=== PATIENT | female | born 1980 | race African-American/Black ===

== ENCOUNTER 2016-11-05 13:12 | Emergency (ER) | payer OTHER ==
[2016-11-05 13:20] VITALS: BMI 25.2
--- NOTE | 2016-11-05 13:43 | PDOC ---
History of Present Illness - History of Present Illness Initial Comments: 11/05/16 13:44 The patient is a 36 year old female, with a significant past medical history of asthma, hypertension, multiple sclerosis (2002) and bipolar depression (on medications), who presents to the emergency department with headaches and bilateral hand cramping/tingling/numbness since 2002 requesting for referral for MS neurology specialist. She states her headaches are constant and diffuse daily. She states her hands and feet cramp and become numb every day, making daily living difficult. She reports she stopped working in 2009 because of her diffuse muscle pain. She states she saw a physician at [facility] who attributed her hand and feet cramping and numbness to bipolar depression. The patient reports [facility] and told her bipolar depression doesn't make your hands cramp and referred her to a neurologist. She reports seeing the neurologist today who stated he does not see MS patients. She denies chest pain, shortness of breath, and dizziness. She denies fever, chills, nausea, vomit, diarrhea and constipation. She denies dysuria, frequency , urgency and hematuria. Allergies: NKDA PCP - unknown name, [facility] <Cyndi Bryan - Last Filed: 11/05/16 13:44> - General History Source: Patient Exam Limitations: No Limitations <Breonna Reina - Last Filed: 11/06/16 19:42> - General Chief Complaint: CVA/TIA Stated Complaint: ALTERED MENTAL STATUS Time Seen by Provider: 11/05/16 13:23 Past History <Cyndi Bryan - Last Filed: 11/05/16 13:44> - Past Medical History Asthma: Yes Cardiac Disorders: Yes ("NEED STENT") HTN: Yes Psychiatric Problems: Yes (BIPOLAR, ANXIETY, DEPRESSION.) Thyroid Disease: Yes (HYPO.) Other medical history: MS. - Psycho/Social/Smoking Cessation Hx Anxiety: Yes Suicidal Ideation: Yes Smoking History: Never smoked Hx Alcohol Use: No Drug/Substance Use Hx: No Substance Use Type: None <Breonna Reina - Last Filed: 11/06/16 19:42> - Past Medical History Allergies/Adverse Reactions: Allergies Allergy/AdvReac Type Severity Reaction Status Date / Time No Known Drug Allergies Allergy Verified 11/05/16 13:15 CHOCOLATE AdvReac Uncoded 11/05/16 13:15 DAIRY AdvReac Uncoded 11/05/16 13:15 ONIONS AdvReac Uncoded 11/05/16 13:15 Home Medications: Ambulatory Orders Acetaminophen/Caffeine/Butalb [Fioricet -] 1 tab PO TID #21 tablet MDD 3 Albuterol Sulfate Inhaler - [Ventolin Hfa Inhaler -] 1 - 2 inh PO QID PRN Amlodipine Besylate [Norvasc -] 2.5 mg PO DAILY 11/05/16 Buspirone HCl [Buspar -] 10 mg PO BID 11/05/16 Duloxetine HCl 30 mg PO DAILY 11/05/16 [place] Carbonate [Eskalith -] 600 mg PO HS 11/05/16 [place] Carbonate [Lithobid] 300 mg PO AM 11/05/16 Mometasone Furoate [Asmanex 220Mcg -] 1 puff IH HS 11/05/16 Montelukast Na [Singulair -] 10 mg PO HS 11/05/16 Nortriptyline HCl [Pamelor -] 25 mg PO DAILY 11/05/16 Trazodone HCl [Desyrel -] 50 mg PO HS 11/05/16 Review of Systems - Review of Systems Able to Perform ROS?: Yes Comments:: 11/05/16 13:44 CONSTITUTIONAL: Absent: fever, no chills, no fatigue EYES: Absent: visual changes ENT: Absent: ear pain, no sore throat CARDIOVASCULAR: Absent: chest pain, no palpitations RESPIRATORY: Absent: cough, no SOB GASTROINTESTINAL: Absent: abdominal pain, no nausea, no vomiting, no constipation, no diarrhea GENITOURINARY: Absent: dysuria, no frequency, no hematuria MUSCULOSKELETAL: (+) cramping, numbness and tingling to bilateral hands and feet. Absent: back pain, no arthralgia, no myalgia SKIN: Absent: rash NEURO: (+) headache <Cyndi Bryan - Last Filed: 11/05/16 13:44> *Physical Exam - Vital Signs Last Vital Signs Temp Pulse Resp BP Pulse Ox 98.3 F 88 18 147/83 100 11/05/16 13:15 11/05/16 13:15 11/05/16 13:15 07/13/17 13:15 11/05/16 13:15 - Physical Exam Comments: 11/05/16 13:45 GENERAL: The patient is in no acute distress. HEAD: Normal with no signs of trauma. EYES: PERRLA, EOMI, sclera anicteric, conjunctiva clear. ENT: Ears normal, nares patent, oropharynx clear without exudates. Moist mucous membranes. NECK: Normal range of motion, supple without lymphadenopathy, JVD, or masses. LUNGS: Breath sounds equal, clear to auscultation bilaterally. No wheezes, and no crackles. HEART:Regular rate and rhythm, normal S1 and S2 without murmur, rub or gallop. ABDOMEN: Soft, nontender, normoactive bowel sounds. No guarding, no rebound. No masses palpable. EXTREMITIES: Normal range of motion, no edema. No clubbing or cyanosis. No erythema, or tenderness. NEUROLOGICAL: Cranial nerves II through XII grossly intact. Normal speech. No focal neurological deficits. MUSCULOSKELETAL: Back non-tender to palpation, no CVA tenderness SKIN: Warm, Dry, normal turgor, no rashes or lesions noted. <Cyndi Bryan - Last Filed: 11/05/16 13:44> - Vital Signs Last Vital Signs Temp Pulse Resp BP Pulse Ox 98.3 F 88 18 147/83 100 11/05/16 13:15 11/05/16 13:15 11/05/16 13:15 11/05/16 13:15 11/05/16 13:15 <Breonna Reina - Last Filed: 11/06/16 19:42> ED Treatment Course - LABORATORY CBC & Chemistry Diagram: 11/05/16 14:26 11/05/16 14:26 <Breonna Reina - Last Filed: 11/06/16 19:42> Medical Decision Making - Medical Decision Making A portion of this note was documented by scribe services under my direction. I have reviewed the details of the note, within reason, and agree with the documentation with the following case summary and management plan written by me. Nursing documentation reviewed and incorporated into medical decision making 11/05/16 13:42 This is a 36 yo F who presents to the ER with a complaint of headache and concerns about MS. Pt state she was diagnosed with MS in 2002 She ultimately went on disability in 2009 due to bilateral hand and feet cramping She has persitently had these symptoms She was seen at [facility] and was told that she actually didn't have MS but rather bipolar depression She also has a history of chronic right sided headaches She was seen by her prior primary care physician who confirmed this She was never seen by Neurology for headaches She was started on some medication (she can not remember the name) which did not help She recently switched from [address] [place] [address] to [facility] She was seen by her PMD there who asked her to follow up with Neurology She was seen today by a neurologist who reportedly told her that (s)he is not a MS specialist Pt presents to the ER for work up of MS which she was told that she had in 2002 and then subsequently told she did not have On examination Pt has flattened affect Speaking in clear and complete sentences RRR CTA No abd tenderness Generalized weakness noted through out (holds hands up against gravity 5/5 bilaterally, hand grip3/5; holds legs up against gravity , does not fall back to bed) 11/05/16 14:24 11/05/16 16:18 Laboratory Tests 11/05/16 14:26 WBC 4.8 Hgb 11.3 Hct 34.4 Plt Count 333 Neutrophils % 57.7 Lymphocytes % 29.7 11/05/16 16:18 Laboratory Tests 11/05/16 11/05/16 14:26 14:26 Sodium 140 Potassium 3.8 Chloride 108 H Carbon Dioxide 25 BUN 12 Creatinine 0.8 D Random Glucose 122 H D Serum , Qual Negative Pt given toradol and Reglan Pt has been sleeping since getting medications Case reviewed with Dr. Dominguez He is happy to see this patient in the office He Can even see her on Wednesday I have relayed this to the patient Will give Fiorecet for headaches Upon re assessment, pt feels better Return to the ER for any other concerns or complaints <Breonna Reina - Last Filed: 11/06/16 19:42> *DC/Admit/Observation/Transfer - Attestations Scribe Attestion: 11/05/16 13:46 Documentation prepared by Cyndi Bryan, acting as medical records clerk for Breonna Reina MD <Cyndi Bryan - Last Filed: 11/05/16 13:44> - Discharge Dispostion Admit: No <Breonna Reina - Last Filed: 11/06/16 19:42> Diagnosis at time of Disposition: Chronic pain Qualifiers: Chronic pain type: chronic pain syndrome Qualified Code(s): G89.4 - Chronic pain syndrome Headache Qualifiers: Headache type: unspecified Headache chronicity pattern: chronic headache Intractability: not intractable Qualified Code(s): R51 - Headache - Discharge Dispostion Disposition: HOME Condition at time of disposition: Stable - Prescriptions Prescriptions: Acetaminophen/Caffeine/Butalb [Fioricet -] 1 tab PO TID #21 tablet MDD 3 - Referrals Referrals: Adán Dominguez MD [Staff Physician] - - Patient Instructions Printed Discharge Instructions: DI for Migraine, DI for Headache Additional Instructions: Thank you for coming in to the ER Dr. Dominguez - the neurologic specialist - is happy to see you in the office Please call the office for a follow up appointment ASH IF you have any records, please bring them with you, he will find that helpful Please take medications as prescribed You should also be sure to take all your home medications as previously prescribed You can return to the ER for any new concerns or complaints
[2016-11-05] MEDS ORDERED: KETOROLAC TROMETHAMINE 30 MG/1 ML VIAL IVPUSH ONE (13:47)
[2016-11-05] MEDS ORDERED: METOCLOPRAMIDE HCL INJECTION 10 MG/2 ML VIAL IVPB ONE (13:47)
[2016-11-05] MEDS ORDERED: KETOROLAC TROMETHAMINE 30 MG/1 ML VIAL ONE (13:52)
[2016-11-05] MEDS ORDERED: METOCLOPRAMIDE HCL INJECTION 10 MG/2 ML VIAL ONE (13:52)
[2016-11-05 14:49] LABS: BASOPHIL 0.5 % (0-2.0); EOSINOPHIL 1.7 % (0-4.5); MCH 28.3 pg (25.7-33.7); MCHC 32.8 g/dl (32.0-36.0); MEAN CELL VOLUME 86.3 fl (80-96); MEAN PLT VOLUME 8.1 fl (7.5-11.1); NEUTROPHILS 57.7 % (42.8-82.8); PLATELET COUNT 333 K/MM3 (134-434); RDW 14.5 % (11.6-15.6); WHITE BLOOD COUNT 4.8 K/mm3 (4.0-10.0)
[2016-11-05 14:59] LABS: ALBUMIN 3.2 g/dl (3.4-5.0); ANION GAP 7 (8-16); BILIRUBIN,TOTAL 0.2 mg/dL (0.2-1.0); CALCIUM 8.8 mg/dL (8.5-10.1); CO2 25 mmol/L (21-32); CREATININE 0.8 mg/dL (0.55-1.02); GLUCOSE,RANDOM 122 mg/dL (74-106); SGOT/AST 16 U/L (15-37); SGPT/ALT 11 U/L (12-78); TOT PROT 6.7 g/dl (6.4-8.2)
[2016-11-05 15:00] LABS: ALK PHOS 53 U/L (45-117)
[2016-11-05 16:53] VITALS: BP 109/82; PULSE 77; TEMP 98.6
== END 2016-11-05 16:50 | disposition home or self-care (01) ==
LOC: JER 13:12
PROC: 3E0333Z Introduction of Anti-inflammatory into Peripheral Vein, Percutaneous Approach (ICD-10-PCS; principal; 2016-11-05)
PROC: 3E033GC Introduction of Other Therapeutic Substance into Peripheral Vein, Percutaneous Approach (ICD-10-PCS; 2016-11-05)
DX: R51 Headache (principal); G89.4 Chronic pain syndrome; J45.909 Unspecified asthma, uncomplicated; I10 Essential (primary) hypertension; F31.89 Other bipolar disorder; G35 Multiple sclerosis
CPT/HCPCS: 36415; 80053; 84703; 85025; 99283-25

== ENCOUNTER 2018-09-01 10:43 | Emergency (ER) | payer OTHER ==
[2018-09-01 10:49] VITALS: BP 118/79; PULSE 100; TEMP 97.7; BMI 196.5
[2018-09-01] MEDS ORDERED: ALBUTEROL SO4 0.083% IH SOL 2.5 MG/3 ML VIAL.NEB. NEB ONE ×2 (10:49→11:11)
--- NOTE | 2018-09-01 12:42 | PDOC ---
History of Present Illness - General Chief Complaint: Asthma Stated Complaint: ASTHMA, LOWER BACK PAIN Time Seen by Provider: 09/01/18 12:35 History Source: Patient Exam Limitations: No Limitations - History of Present Illness Initial Comments: 09/01/18 12:42 Patient is here with multiple complaints including asthma exacerbation and low back pain. States spent the night at friend's house last night where she didn't have her medications and had an a mild asthma attack. Coughing initiated worsening of her low back pain. States her back pain has been bothering her for the past couple weeks, generally is resolved with cyclobenzaprine but has progressively gotten worse. Timing/Duration: reports: getting worse Severity: reports: mild, moderate Past History - Travel Traveled outside of the country in the last 30 days: No Close contact w/someone who was outside of country & ill: No - Past Medical History Allergies/Adverse Reactions: Allergies Allergy/AdvReac Type Severity Reaction Status Date / Time No Known Drug Allergies Allergy Verified 09/01/18 10:51 CHOCOLATE AdvReac Uncoded 09/01/18 10:51 DAIRY AdvReac Uncoded 09/01/18 10:51 ONIONS AdvReac Uncoded 09/01/18 10:51 Home Medications: Ambulatory Orders Acetaminophen/Caffeine/Butalb [Fioricet -] 1 tab PO TID #21 tablet MDD 3 Albuterol Sulfate Inhaler - [Ventolin Hfa Inhaler -] 1 - 2 inh PO QID PRN Amlodipine Besylate [Norvasc -] 2.5 mg PO DAILY 11/05/16 Buspirone HCl [Buspar -] 10 mg PO BID 11/05/16 Duloxetine HCl 30 mg PO DAILY 11/05/16 [place] Carbonate [Eskalith -] 600 mg PO HS 11/05/16 [place] Carbonate [Lithobid] 300 mg PO AM 11/05/16 Mometasone Furoate [Asmanex 220Mcg -] 1 puff IH HS 11/05/16 Montelukast Na [Singulair -] 10 mg PO HS 11/05/16 Nortriptyline HCl [Pamelor -] 25 mg PO DAILY 11/05/16 traZODone HCL [Desyrel -] 50 mg PO HS 11/05/16 Albuterol Sulfate [Proventil HFA Inhaler -] 1 - 2 inh PO QID #1 inhaler Naproxen [Naprosyn -] 500 mg PO BID #30 tablet 09/01/18 Anemia: Yes Asthma: Yes Cardiac Disorders: Yes ("NEED STENT") COPD: No Diabetes: Yes ("Pre-Diabetes") HTN: Yes Psychiatric Problems: Yes (BIPOLAR, ANXIETY, DEPRESSION.) Thyroid Disease: Yes (HYPO.) - Suicide/Smoking/Psychosocial Hx Smoking History: Never smoked Hx Alcohol Use: No Drug/Substance Use Hx: No Substance Use Type: None Review of Systems - Review of Systems Able to Perform ROS?: Yes Is the patient limited Faroese proficient: Yes Constitutional: Yes: Symptoms Reported, See HPI, Malaise HEENTM: Yes: See HPI. No: Symptoms Reported Respiratory: Yes: Symptoms reported (+ exacerbation as did not have Albuterol pump.), See HPI, Cough, Wheezing Integumentary: Yes: Symptoms Reported All Other Systems: Reviewed and Negative *Physical Exam - Vital Signs Last Vital Signs Temp Pulse Resp BP Pulse Ox 97.7 F 100 H 26 H 118/79 99 09/01/18 10:46 09/01/18 10:46 09/01/18 10:46 09/01/18 10:46 09/01/18 10:46 - Physical Exam General Appearance: Yes: Nourished, Appropriately Dressed, Apparent Distress HEENT: positive: JOSUE, Normal ENT Inspection, TMs Normal, Pharynx Normal Neck: positive: Supple. negative: Lymphadenopathy (R), Lymphadenopathy (L) Respiratory/Chest: positive: Lungs Clear, Normal Breath Sounds. negative: Chest Tender Gastrointestinal/Abdominal: positive: Normal Bowel Sounds, Soft. negative: Tender Musculoskeletal: positive: Normal Inspection Extremity: positive: Normal Inspection. 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 Requested Percocet tablets but patient is on pain management program and discussed and able/and willing to prescribe narcotics as patient also takes multiple psychiatric medications. Given injection of Toradol and recommended follow-up with pain management *DC/Admit/Observation/Transfer Diagnosis at time of Disposition: Chronic pain Qualifiers: Chronic pain type: chronic pain syndrome Qualified Code(s): G89.4 - Chronic pain syndrome Asthma Qualifiers: Asthma severity: mild Asthma persistence: intermittent Asthma complication type : with acute exacerbation Qualified Code(s): J45.21 - Mild intermittent asthma with (acute) exacerbation - Discharge Dispostion Disposition: HOME Condition at time of disposition: Stable Decision to Admit order: No - Prescriptions Prescriptions: Albuterol Sulfate [Proventil HFA Inhaler -] 1 - 2 inh PO QID #1 inhaler Naproxen [Naprosyn -] 500 mg PO BID #30 tablet - Referrals - Patient Instructions Printed Discharge Instructions: Asthma -- Adult Additional Instructions: Rest, no heavy lifting or exercise until pain is resolved Hot soaks to neck and low back as often as possible/hot showers or Jacuzzis No massage or therapy until spasm is gone Continue Naprosyn 500 mg tablet, 1 tablet every 8 hours for the next 3 days then as needed for pain and swelling Cyclobenzaprine 1-10mg every 8 hours as needed for spasm If not significant improvement within 24 hours with medication and rest regime, followup with private physician for change in medications and /or therapy. - Post Discharge Activity Forms/Work/School Notes: Back to Work
[2018-09-01] MEDS ORDERED: KETOROLAC TROMETHAMINE 60 MG/2 ML VIAL IM ONE (12:56)
[2018-09-01] MEDS ORDERED: KETOROLAC TROMETHAMINE 60 MG/2 ML VIAL ONE (13:08)
[2018-09-01 13:13] LABS: EPI CELLS 9.4 /HPF (0-5/HPF); PH,URINE 5.5 (5.0-8.0); URINE APPEARANCE CLOUDY; URINE BACTERIA 6342.7 /hpf (NEGATIVE); URINE BILIRUBIN NEGATIVE (NEGATIVE); URINE CASTS 64 /lpf (0-8); URINE COLOR DK YELLOW; URINE GLUCOSE (UA) NEGATIVE (NEGATIVE); URINE KETONE TRACE (NEGATIVE); URINE LEUK ESTERASE 1+ (NEGATIVE); URINE NITRITE POSITIVE (NEGATIVE); URINE PROTEIN TRACE (NEGATIVE); URINE RBC 3 /hpf (0-4); URINE WBC 49 /hpf (0-5)
[2018-09-01 13:35] LABS: HCG,QUALITATIVE URINE NEGATIVE
== END 2018-09-01 13:15 | disposition home or self-care (01) ==
LOC: JERFT 10:43
PROC: 3E0F7GC Introduction of Other Therapeutic Substance into Respiratory Tract, Via Natural or Artificial Opening (ICD-10-PCS; principal; 2018-09-01)
PROC: 3E0233Z Introduction of Anti-inflammatory into Muscle, Percutaneous Approach (ICD-10-PCS; 2018-09-01)
DX: J45.21 Mild intermittent asthma with (acute) exacerbation (principal); M54.5 Low back pain; G89.29 Other chronic pain; I10 Essential (primary) hypertension; D64.9 Anemia, unspecified; E03.9 Hypothyroidism, unspecified; R73.03 Prediabetes; F31.9 Bipolar disorder, unspecified; F41.9 Anxiety disorder, unspecified
CPT/HCPCS: 81003; 84703; 99281-25

== ENCOUNTER 2019-02-17 13:22 | Emergency (ER) | payer OTHER ==
[2019-02-17 13:49] VITALS: BP 146/91; PULSE 80; TEMP 98.3
--- NOTE | 2019-02-17 13:50 | PDOC ---
Rapid Medical Evaluation Time Seen by Provider: 02/17/19 13:44 Medical Evaluation: Allergies Allergy/AdvReac Type Severity Reaction Status Date / Time No Known Drug Allergies Allergy Verified 09/01/18 10:51 CHOCOLATE AdvReac Uncoded 09/01/18 10:51 DAIRY AdvReac Uncoded 09/01/18 10:51 ONIONS AdvReac Uncoded 09/01/18 10:51 02/17/19 13:44 I have performed a brief in-person evaluation of this patient. The patient presents with a chief complaint of: Itchy rash to the torso, breasts for 2 weeks, (+) discharge from breast rash for 2 weeks. (+)tactile fever. The patient will proceed to the ED for further evaluation. Discharge Disposition - Diagnosis Rash - Referrals - Patient Instructions - Post Discharge Activity
[2019-02-17] MEDS ORDERED: NAPROXEN 500 MG TABLET (FP) PO ONE (14:46)
--- NOTE | 2019-02-17 14:53 | PDOC ---
History of Present Illness - General Chief Complaint: Rash Stated Complaint: REF BY DOCTOR, SKIN INFECTION Time Seen by Provider: 02/17/19 13:44 History Source: Patient Exam Limitations: No Limitations - History of Present Illness Initial Comments: 02/17/19 14:58 HISTORY OF PRESENT ILLNESS: This is a 38-year-old female past medical history of MS, hypertension who presents emergency department for evaluation of rash to trunk which is scattered over back and breasts. Patient reports clear discharge present from the rash. She reports the rashes and itching burning sensation worse over her upper back and breasts. She reports she feels warm but has not had any fevers. No recent travel or sick contacts. PAST MEDICAL HISTORY: See HPI SURGICAL HISTORY: Denies ALLERGIES: No known drug allergies REVIEW OF SYSTEMS General/Constitutional: Denies fever or chills. Denies weakness, weight change. HEENT: Denies change in vision. Denies ear pain or discharge. Denies sore throat. Cardiovascular: Denies chest pain or shortness of breath. Respiratory: Denies cough, wheezing, or hemoptysis. Gastrointestinal: Denies nausea, vomiting, diarrhea or constipation. Denies rectal bleeding. Genitourinary: Denies dysuria, frequency, or change in urination. Musculoskeletal: Denies joint or muscle swelling or pain. Denies neck or back pain. Skin and breasts: See HPI Neurologic: Denies headache, vertigo, loss of consciousness, or loss of sensation. Psychiatric: Denies depression or anxiety. Endocrine: Denies increased thirst. Denies abnormal weight change. Hematologic/Lymphatic: Denies anemia, easy bleeding, or history of blood clots. Allergic/Immunologic: Denies hives or skin allergy. Denies latex allergy. PHYSICAL EXAM General Appearance: Well-appearing, appropriately dressed. No apparent distress , no intoxication. Respiratory/Chest: Lungs CTAB. No shortness of breath, chest tenderness, respiratory distress, accessory muscle use. No crackles, rales, rhonchi, stridor , wheezing, dullness Cardiovascular: RRR. S1, S2. No JVD, murmur, bradycardia, tachycardia. Vascular Pulses: Dorsalis-Pedis (R): 2+, Dorsalis-Pedis (L): 2+ Gastrointestinal/Abdominal: Normal bowel sounds. Abdomen soft, non-distended. No tenderness or rebound tenderness. No organomegaly, pulsatile mass, guarding, hernia, hepatomegaly, splenomegaly. Lymphatic: No adenopathy, tenderness. Integumentary:, Burning [place] vesicular zosteriform rash present to upper back wrapping around to her abdomen and lower breast bilaterally. No drainage present at this time. Neurologic: weaving loom operator II-XII intact. Fully oriented, alert. Appropriate mood/affect. Motor strength 5/5. No appreciable EOM palsy, facial droop or sensory deficit. 02/17/19 14:59 Past History - Past Medical History Allergies/Adverse Reactions: Allergies Allergy/AdvReac Type Severity Reaction Status Date / Time No Known Drug Allergies Allergy Verified 09/01/18 10:51 CHOCOLATE AdvReac Uncoded 09/01/18 10:51 DAIRY AdvReac Uncoded 09/01/18 10:51 ONIONS AdvReac Uncoded 09/01/18 10:51 Home Medications: Ambulatory Orders Acetaminophen/Caffeine/Butalb [Fioricet -] 1 tab PO TID #21 tablet MDD 3 Albuterol Sulfate Inhaler - [Ventolin Hfa Inhaler -] 1 - 2 inh PO QID PRN Amlodipine Besylate [Norvasc -] 2.5 mg PO DAILY 11/05/16 Buspirone HCl [Buspar -] 10 mg PO BID 11/05/16 Duloxetine HCl 30 mg PO DAILY 11/05/16 [place] Carbonate [Eskalith -] 600 mg PO HS 11/05/16 [place] Carbonate [Lithobid] 300 mg PO AM 11/05/16 Mometasone Furoate [Asmanex 220Mcg -] 1 puff IH HS 11/05/16 Montelukast Na [Singulair -] 10 mg PO HS 11/05/16 Nortriptyline HCl [Pamelor -] 25 mg PO DAILY 11/05/16 traZODone HCL [Desyrel -] 50 mg PO HS 11/05/16 Albuterol Sulfate [Proventil HFA Inhaler -] 1 - 2 inh PO QID #1 inhaler Naproxen [Naprosyn -] 500 mg PO BID #30 tablet 09/01/18 Tramadol HCl 50 mg PO BID PRN #10 tablet MDD 2 02/17/19 Valacyclovir HCl [Valtrex -] 1,000 mg PO TID #21 tablet 02/17/19 Anemia: Yes Asthma: Yes Cardiac Disorders: Yes ("NEED STENT") COPD: No Diabetes: Yes ("Pre-Diabetes") HTN: Yes Psychiatric Problems: Yes (BIPOLAR, ANXIETY, DEPRESSION.) Thyroid Disease: Yes (HYPO.) - Psycho Social/Smoking Cessation Hx Smoking History: Never smoked Hx Alcohol Use: No Drug/Substance Use Hx: No Substance Use Type: None *Physical Exam - Vital Signs Last Vital Signs Temp Pulse Resp BP Pulse Ox 98.3 F 80 18 146/91 100 02/17/19 13:45 02/17/19 13:45 02/17/19 13:45 02/17/19 13:45 02/17/19 13:45 Medical Decision Making - Medical Decision Making 02/17/19 15:02 A/P: 38-year-old woman with rash extending from her upper back circumferentially to her upper abdomen and bilateral lower breasts Appearance is consistent with zosteriform rash. Patient is demanding narcotic pain medication for relief of burning sensation. 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 Patient was offered Toradol but reported she did not want injectable medication and order for Naprosyn was placed. Patient states she does not want the Naprosyn and is not requesting the Toradol. Toradol 60 mg IM now Culture from rash Discharged home with prescription for tramadol and valacyclovir with recommendations to follow-up with rattlesnake farmer. For number for Dr. Avila of dermatology has been provided for the patient to follow-up. Discharge - Discharge Information Problems reviewed: Yes Clinical Impression/Diagnosis: Shingles rash Qualifiers: Herpes zoster complications: without complications Qualified Code(s): B02.9 - Zoster without complications Condition: Fair Disposition: HOME - Admission No - Additional Discharge Information Prescriptions: Tramadol HCl 50 mg PO BID PRN #10 tablet MDD 2 PRN Reason: Severe Pain Valacyclovir HCl [Valtrex -] 1,000 mg PO TID #21 tablet - Follow up/Referral Referrals: Jonn Skelton MD [Primary Care Provider] - Mecca Avila MD [Staff Physician] - - Patient Discharge Instructions Additional Instructions: Take valacyclovir 1000 mg 3 times a day for the next 7 days. Take Tylenol or Naprosyn as needed for pain. Follow cutter and paster press clippings's instructions for appropriate dosage. Take tramadol 50 mg twice a day as needed for severe pain not relieved by Tylenol or Naprosyn. You been given the name of the rattlesnake farmer. Follow-up for continued evaluation. Your emergency department visit is not complete until you follow-up with your primary doctor. Return to the emergency department for any new or worsening symptoms. Thank you very much for choosing us to provide your emergent health care needs. - Post Discharge Activity
[2019-02-17] MEDS ORDERED: KETOROLAC TROMETHAMINE 60 MG/2 ML VIAL IM ONE (14:59)
[2019-02-17] MEDS ORDERED: KETOROLAC TROMETHAMINE 60 MG/2 ML VIAL ONE (14:59)
== END 2019-02-17 15:36 | disposition home or self-care (01) ==
LOC: JERFT 13:22
PROC: 3E0233Z Introduction of Anti-inflammatory into Muscle, Percutaneous Approach (ICD-10-PCS; principal; 2019-02-17)
DX: B02.9 Zoster without complications (principal); I25.10 Atherosclerotic heart disease of native coronary artery without angina pectoris; I10 Essential (primary) hypertension; D64.9 Anemia, unspecified; J45.909 Unspecified asthma, uncomplicated; E03.9 Hypothyroidism, unspecified; F31.9 Bipolar disorder, unspecified; F41.9 Anxiety disorder, unspecified; G35 Multiple sclerosis; R73.03 Prediabetes; Z91.018 Allergy to other foods; Z91.011 Allergy to milk products
CPT/HCPCS: 87070; 87186; 87205; 96372; 99281-25

== ENCOUNTER 2019-02-21 18:41 | Emergency (ER) | payer OTHER ==
--- NOTE | 2019-02-21 18:47 | PDOC ---
Rapid Medical Evaluation Time Seen by Provider: 02/21/19 18:43 Medical Evaluation: Allergies Allergy/AdvReac Type Severity Reaction Status Date / Time No Known Drug Allergies Allergy Verified 09/01/18 10:51 CHOCOLATE AdvReac Uncoded 09/01/18 10:51 DAIRY AdvReac Uncoded 09/01/18 10:51 ONIONS AdvReac Uncoded 09/01/18 10:51 02/21/19 18:43 I have performed a brief in-person evaluation of this patient. The patient presents with a chief complaint of: generalized pruritic rash x 1 week. No obvious inciting factors. On valtrex w/ no relief. Received call back today That wound cx from R breast grew back staph (sen on records). Told to return for re-eval Pertinent physical exam findings:stable, defer rest of exam to ED I have ordered the following:nothing The patient will proceed to the ED for further evaluation. Discharge Disposition - Diagnosis Rash and nonspecific skin eruption - Referrals - Patient Instructions - Post Discharge Activity
[2019-02-21 18:52] VITALS: BP 143/94; PULSE 100; TEMP 98.4; BMI 25.5
[2019-02-21] MEDS ORDERED: DEXAMETHASONE SOD PHOSPHATE 10 MG/1 ML VIAL IM ONE (19:10)
[2019-02-21] MEDS ORDERED: DEXAMETHASONE SOD PHOSPHATE 10 MG/1 ML VIAL ONE (19:12)
--- NOTE | 2019-02-21 19:14 | PDOC ---
History of Present Illness - General Chief Complaint: Rash Stated Complaint: RASH Time Seen by Provider: 02/21/19 18:43 - History of Present Illness Initial Comments: 02/21/19 19:09 CHIEF COMPLAINT: rash HISTORY OF PRESENT ILLNESS: 38 yo F presents to [facility] with rash to entire body x 1 month. Patient reports she was given valtrex without relief and the itching has persisted. She denies any new foods or medications. No recent travel or sick contacts. PAST MEDICAL HISTORY: Denies past medical history FAMILY HISTORY: Denies SOCIAL HISTORY:Denies tobacco, alcohol, illicit drug use. SURGICAL HISTORY: Denies ALLERGIES: chocolate, dairy, onions REVIEW OF SYSTEMS General/Constitutional: Denies fever or chills. Denies weakness, weight change. HEENT: Denies change in vision. Denies ear pain or discharge. Denies sore throat. Cardiovascular: Denies chest pain or shortness of breath. Respiratory: Denies cough, wheezing, or hemoptysis. Gastrointestinal: Denies nausea, vomiting, diarrhea or constipation. Denies rectal bleeding. Genitourinary: Denies dysuria, frequency, or change in urination. Musculoskeletal: Denies joint or muscle swelling or pain. Denies neck or back pain. Skin: rash x 1 month Neurologic: Denies headache, vertigo, loss of consciousness, or loss of sensation. Psychiatric: Denies depression or anxiety. PHYSICAL EXAM General Appearance: Well-appearing, appropriately dressed. No apparent distress , no intoxication. HEENT: EOMI, PERRLA, normal ENT inspection, normal voice, TMs normal, pharynx normal. No conjunctival pallor. No photophobia, scleral icterus. Neck: Supple. Trachea midline. No tenderness, rigidity, carotid bruit, stridor , lymphadenopathy, or thyromegaly. Respiratory/Chest: Lungs CTAB. No shortness of breath, chest tenderness, respiratory distress, accessory muscle use. No crackles, rales, rhonchi, stridor , wheezing, dullness Cardiovascular: RRR. S1, S2. No JVD, murmur, bradycardia, tachycardia. Vascular Pulses: Dorsalis-Pedis (R): 2+, Dorsalis-Pedis (L): 2+ Gastrointestinal/Abdominal: Normal bowel sounds. Abdomen soft, non-distended. No tenderness or rebound tenderness. No organomegaly, pulsatile mass, guarding , hernia, hepatomegaly, splenomegaly. Lymphatic: No adenopathy, tenderness. Musculoskeletal/Extremities: Normal inspection. FROM of all extremities, normal capillary refill. Pelvis Stable. No CVA tenderness. No tenderness to extremities, pedal edema, swelling, erythema or deformity. Integumentary: Generalized, pruritic, macular rash to entire body with markings to webspaces of fingers. Neurologic: vendor manager II-XII intact. Fully oriented, alert. Appropriate mood/affect. Motor strength 5/5. No appreciable EOM palsy, facial droop or sensory deficit. 02/22/19 13:28 Past History - Past Medical History Allergies/Adverse Reactions: Allergies Allergy/AdvReac Type Severity Reaction Status Date / Time No Known Drug Allergies Allergy Verified 02/21/19 18:45 CHOCOLATE AdvReac Uncoded 02/21/19 18:45 DAIRY AdvReac Uncoded 02/21/19 18:45 ONIONS AdvReac Uncoded 02/21/19 18:45 Home Medications: Ambulatory Orders Acetaminophen/Caffeine/Butalb [Fioricet -] 1 tab PO TID #21 tablet MDD 3 Albuterol Sulfate Inhaler - [Ventolin Hfa Inhaler -] 1 - 2 inh PO QID PRN Amlodipine Besylate [Norvasc -] 2.5 mg PO DAILY 11/05/16 Buspirone HCl [Buspar -] 10 mg PO BID 11/05/16 Duloxetine HCl 30 mg PO DAILY 11/05/16 [place] Carbonate [Eskalith -] 600 mg PO HS 11/05/16 [place] Carbonate [Lithobid] 300 mg PO AM 11/05/16 Mometasone Furoate [Asmanex 220Mcg -] 1 puff IH HS 11/05/16 Montelukast Na [Singulair -] 10 mg PO HS 11/05/16 Nortriptyline HCl [Pamelor -] 25 mg PO DAILY 11/05/16 traZODone HCL [Desyrel -] 50 mg PO HS 11/05/16 Albuterol Sulfate [Proventil HFA Inhaler -] 1 - 2 inh PO QID #1 inhaler Naproxen [Naprosyn -] 500 mg PO BID #30 tablet 09/01/18 Tramadol HCl 50 mg PO BID PRN #10 tablet MDD 2 02/17/19 Valacyclovir HCl [Valtrex -] 1,000 mg PO TID #21 tablet 02/17/19 Hydroxyzine HCl 25 mg PO TID #30 tablet 02/21/19 Hydroxyzine HCl 25 mg PO TID #30 tablet 02/21/19 Permethrin 5% Topical Cream [Elimite -] 1 applic TP ONCE #1 tube 02/21/19 Permethrin [Elimite] 60 gm TP ONCE #1 tube 02/21/19 Sulfamethoxazole/Trimethoprim [Bactrim Ds -] 1 tab PO BID #14 tablet 02/21/19 Sulfamethoxazole/Trimethoprim [Bactrim Ds -] 1 tab PO BID #14 tablet 02/21/19 Anemia: Yes Asthma: Yes Cardiac Disorders: Yes ("NEED STENT") COPD: No Diabetes: Yes ("Pre-Diabetes") HTN: Yes Psychiatric Problems: Yes (BIPOLAR, ANXIETY, DEPRESSION.) Thyroid Disease: Yes (HYPO.) - Psycho Social/Smoking Cessation Hx Smoking History: Never smoked Hx Alcohol Use: No Drug/Substance Use Hx: No Substance Use Type: None *Physical Exam - Vital Signs Last Vital Signs Temp Pulse Resp BP Pulse Ox 98.4 F 100 H 18 143/94 100 02/21/19 18:42 02/21/19 18:42 02/21/19 18:42 02/21/19 18:42 02/21/19 18:42 Medical Decision Making - Medical Decision Making 38 yo F presents to [facility] with rash to entire body x 1 month. Clinical presentation consistent with scabies. Patient c/o of unbearable itching. -decadrom IM -hydroxyzine permethrin cream Advised patient to take medication as prescribed and follow up with dermatology within the next week. Advised patient of signs and symptoms for return to ED. Patient verbalized understanding and agrees to plan. Discharge - Discharge Information Problems reviewed: Yes Clinical Impression/Diagnosis: Scabies Condition: Stable Disposition: HOME - Admission No - Additional Discharge Information Prescriptions: Hydroxyzine HCl 25 mg PO TID #30 tablet Hydroxyzine HCl 25 mg PO TID #30 tablet Permethrin [Elimite] 60 gm TP ONCE #1 tube Permethrin 5% Topical Cream [Elimite -] 1 applic TP ONCE #1 tube Sulfamethoxazole/Trimethoprim [Bactrim Ds -] 1 tab PO BID #14 tablet Sulfamethoxazole/Trimethoprim [Bactrim Ds -] 1 tab PO BID #14 tablet - Follow up/Referral Referrals: Mecca Avila MD [Staff Physician] - - Patient Discharge Instructions Patient Printed Discharge Instructions: DI for Scabies, DI for Rash Additional Instructions: Please use medications as directed. As discussed, follow up with dermatology for skin testing to evaluate for possible allergy triggers. If you develop any new or worsening symptoms, please return to the ER. - Post Discharge Activity
== END 2019-02-21 19:33 | disposition home or self-care (01) ==
LOC: JERFT 18:41
PROC: 3E0233Z Introduction of Anti-inflammatory into Muscle, Percutaneous Approach (ICD-10-PCS; principal; 2019-02-21)
DX: B86 Scabies (principal); R89.5 Abnormal microbiological findings in specimens from other organs, systems and tissues; B95.7 Other staphylococcus as the cause of diseases classified elsewhere; I25.10 Atherosclerotic heart disease of native coronary artery without angina pectoris; I10 Essential (primary) hypertension; J45.909 Unspecified asthma, uncomplicated; D64.9 Anemia, unspecified; E03.9 Hypothyroidism, unspecified; F41.9 Anxiety disorder, unspecified; R73.03 Prediabetes; Z91.018 Allergy to other foods; Z91.011 Allergy to milk products
CPT/HCPCS: 96372; 99281-25; J1100

== ENCOUNTER 2019-02-24 15:56 | Emergency (ER) | payer OTHER ==
--- NOTE | 2019-02-24 16:07 | PDOC ---
Rapid Medical Evaluation Time Seen by Provider: 02/24/19 16:03 Medical Evaluation: Allergies Allergy/AdvReac Type Severity Reaction Status Date / Time No Known Drug Allergies Allergy Verified 02/24/19 16:03 CHOCOLATE AdvReac Uncoded 02/24/19 16:03 DAIRY AdvReac Uncoded 02/24/19 16:03 ONIONS AdvReac Uncoded 02/24/19 16:03 02/24/19 16:03 Pt c/o: chills, dizzy, seen here twice before and states s/s worsen after taking meds Pt on brief exam: 99.4, 106 hr, ambulatory, Pt ordered for: none Pt proceed to the ED 02/24/19 16:04 Discharge Disposition - Diagnosis Cellulitis, UTI (urinary tract infection) - Discharge Dispostion Disposition: HOME Condition at time of disposition: Stable - Prescriptions Prescriptions: Ondansetron [Zofran -] 4 mg PO TID #21 tablet - Referrals Referrals: Jonn Skelton MD [Primary Care Provider] - - Patient Instructions Additional Instructions: Take Bactrim DS as previously prescribed. Finish all antibiotics even if you feel better. Follow-up with your maintenance painter for continued management of your pain. Return to emergency department for any worsening pain, drainage, hearing loss, or any other concerns. Thank you very much for choosing us to provide your emergent health care needs. - Post Discharge Activity
[2019-02-24 16:08] VITALS: BP 115/71; PULSE 106; TEMP 99.6; BMI 24.7
[2019-02-24] MEDS ORDERED: ONDANSETRON 4 MG/2 ML VIAL IVPUSH ONE (17:10)
[2019-02-24] MEDS ORDERED: morphine CARPU-JECT 4 MG/1 ML DISP.SYRIN IVPUSH ONE (17:10)
[2019-02-24] MEDS ORDERED: SODIUM CHLORIDE 1,000 ML IV STA (17:10)
--- NOTE | 2019-02-24 17:25 | PDOC ---
History of Present Illness - General Chief Complaint: SIRS, Suspected/Possible Stated Complaint: SORE THROAT/BODY PAIN Time Seen by Provider: 02/24/19 16:03 History Source: Patient, Old Records Exam Limitations: No Limitations - History of Present Illness Initial Comments: 02/24/19 17:25 HISTORY OF PRESENT ILLNESS: This is a 38-year-old female past medical history of MS, hypertension who presents emergency department for evaluation of rash to trunk which is scattered over back and breasts. Patient reports clear discharge present from the rash. She reports the rashes and itching burning sensation worse over her upper back and breasts. Patient was seen and treated with Valtrex with minimal relief of symptoms. At that time culture was obtained from the wound which grew Staphylococcus aureus. Patient was started on Bactrim and is taken 1 dose yesterday without immediate improvement. Patient reported taking the medication she began to feel nauseous but did not vomit. She experience some chills but did not have a fever. Patient also now endorses a sore throat and right upper quadrant pain. She denies any nausea, vomiting, diarrhea. No recent travel or sick contacts. PAST MEDICAL HISTORY: See HPI SURGICAL HISTORY: Denies ALLERGIES: No known drug allergies REVIEW OF SYSTEMS General/Constitutional: Denies fever or chills. Denies weakness, weight change. HEENT: See HPI Cardiovascular: Denies chest pain or shortness of breath. Respiratory: Denies cough, wheezing, or hemoptysis. Gastrointestinal: See HPI Genitourinary: Denies dysuria, frequency, or change in urination. Musculoskeletal: Denies joint or muscle swelling or pain. Denies neck or back pain. Skin and breasts: See HPI Neurologic: Denies headache, vertigo, loss of consciousness, or loss of sensation. Psychiatric: Denies depression or anxiety. Endocrine: Denies increased thirst. Denies abnormal weight change. Hematologic/Lymphatic: Denies anemia, easy bleeding, or history of blood clots. Allergic/Immunologic: Denies hives or skin allergy. Denies latex allergy. PHYSICAL EXAM General Appearance: Well-appearing, appropriately dressed. No apparent distress , no intoxication. HEENT: EOMI, PERRLA, normal ENT inspection, normal voice, TMs normal, pharynx normal. No conjunctival pallor. No photophobia, scleral icterus. Oropharynx mildly erythematous without tonsillar swelling or exudate present. No lesions are noted in the oropharynx. Neck: Supple. Trachea midline. No rigidity, carotid bruit, stridor, or thyromegaly. Tender anterior cervical lymphadenopathy present. Respiratory/Chest: Lungs CTAB. No shortness of breath, chest tenderness, respiratory distress, accessory muscle use. No crackles, rales, rhonchi, stridor , wheezing, dullness Cardiovascular: RRR. S1, S2. No JVD, murmur, bradycardia, tachycardia. Vascular Pulses: Dorsalis-Pedis (R): 2+, Dorsalis-Pedis (L): 2+ Gastrointestinal/Abdominal: Normal bowel sounds. Abdomen soft, non-distended. Right upper quadrant tenderness with guarding. No organomegaly, pulsatile mass, hernia, hepatomegaly, splenomegaly. Lymphatic: No adenopathy, tenderness. Musculoskeletal/Extremities: Normal inspection. FROM of all extremities, normal capillary refill. Pelvis Stable. No CVA tenderness. No tenderness to extremities, pedal edema, swelling, erythema or deformity. Integumentary: Burning [place] crusted vesicular rash present to upper back wrapping around to her abdomen and lower breast bilaterally. No drainage present at this time. Neurologic: bird raiser II-XII intact. Fully oriented, alert. Appropriate mood/affect. Motor strength 5/5. No appreciable EOM palsy, facial droop or sensory deficit. 02/24/19 17:26 02/24/19 17:30 Past History - Past Medical History Allergies/Adverse Reactions: Allergies Allergy/AdvReac Type Severity Reaction Status Date / Time No Known Drug Allergies Allergy Verified 02/24/19 16:03 CHOCOLATE AdvReac Uncoded 02/24/19 16:03 DAIRY AdvReac Uncoded 02/24/19 16:03 ONIONS AdvReac Uncoded 02/24/19 16:03 Home Medications: Ambulatory Orders Acetaminophen/Caffeine/Butalb [Fioricet -] 1 tab PO TID #21 tablet MDD 3 Albuterol Sulfate Inhaler - [Ventolin Hfa Inhaler -] 1 - 2 inh PO QID PRN Amlodipine Besylate [Norvasc -] 2.5 mg PO DAILY 11/05/16 Buspirone HCl [Buspar -] 10 mg PO BID 11/05/16 Duloxetine HCl 30 mg PO DAILY 11/05/16 [place] Carbonate [Eskalith -] 600 mg PO HS 11/05/16 [place] Carbonate [Lithobid] 300 mg PO AM 11/05/16 Mometasone Furoate [Asmanex 220Mcg -] 1 puff IH HS 11/05/16 Montelukast Na [Singulair -] 10 mg PO HS 11/05/16 Nortriptyline HCl [Pamelor -] 25 mg PO DAILY 11/05/16 traZODone HCL [Desyrel -] 50 mg PO HS 11/05/16 Albuterol Sulfate [Proventil HFA Inhaler -] 1 - 2 inh PO QID #1 inhaler Naproxen [Naprosyn -] 500 mg PO BID #30 tablet 09/01/18 Tramadol HCl 50 mg PO BID PRN #10 tablet MDD 2 02/17/19 Valacyclovir HCl [Valtrex -] 1,000 mg PO TID #21 tablet 02/17/19 Hydroxyzine HCl 25 mg PO TID #30 tablet 02/21/19 Hydroxyzine HCl 25 mg PO TID #30 tablet 02/21/19 Permethrin 5% Topical Cream [Elimite -] 1 applic TP ONCE #1 tube 02/21/19 Permethrin [Elimite] 60 gm TP ONCE #1 tube 02/21/19 Sulfamethoxazole/Trimethoprim [Bactrim Ds -] 1 tab PO BID #14 tablet 02/21/19 Sulfamethoxazole/Trimethoprim [Bactrim Ds -] 1 tab PO BID #14 tablet 02/21/19 Anemia: Yes Asthma: Yes Cardiac Disorders: Yes COPD: No Diabetes: Yes ("Pre-Diabetes") HTN: Yes Psychiatric Problems: Yes (BIPOLAR, ANXIETY, DEPRESSION.) Thyroid Disease: Yes (HYPO.) - Psycho Social/Smoking Cessation Hx Smoking History: Unknown if ever smoked Hx Alcohol Use: No Drug/Substance Use Hx: No Substance Use Type: None *Physical Exam - Vital Signs Last Vital Signs Temp Pulse Resp BP Pulse Ox 99.6 F 106 H 20 115/71 98 02/24/19 16:05 02/24/19 16:05 02/24/19 16:05 02/24/19 16:05 02/24/19 16:05 ED Treatment Course - LABORATORY CBC & Chemistry Diagram: 02/24/19 17:35 02/24/19 17:35 - RADIOLOGY Radiology Studies Ordered: Category Date Time Status GALLBLADDER US [US] Stat Ultrasound 02/24/19 17:11 Ordered Medical Decision Making - Medical Decision Making 02/24/19 17:30 A/P: 38-year-old woman with abdominal pain, chills and probable superimposed infection on herpes zoster CBC, CMP, lipase Urinalysis, urine culture Right upper quadrant ultrasound Rapid strep testing Normal saline 1 L IV bolus Zofran 4 mg IV Morphine 4 mg IV Reassess 02/24/19 20:28 EKG sinus rhythm rate of 87. Normal intervals present. Normal axis. No ischemic changes noted. Ultrasound was read by Dr. Bland: Gallbladder appears slightly contracted which could be a physiologic basis. No definite calculus is identified allowing for mild limited gallbladder contraction. There is no definite gallbladder wall thickening or pericholecystic fluid. Common bile duct diameter appears unremarkable measuring 0.3 cm Liver, right kidney and partially visualized pancreas demonstrate no sonographic pathology. No free intraperitoneal fluid is seen. CBC is unremarkable Chemistries are unremarkable Urine with 1+ blood, 1+ leuk esterase and 18 WBCs. Patient has no symptoms and is currently being treated with Bactrim for skin infection. We will discharge patient home with prescription for Zofran to continue antibiotics as previously prescribed. I discussed the physical exam findings, ancillary test results and final diagnoses with the patient. I answered all of the patient's questions. The patient was satisfied with the care received and felt comfortable with the discharge plan and treatment plan. The patient will call their primary care physician within 24 hours to arrange follow-up and will return to the Emergency Department with any new, persistent or worsening symptoms. Discharge - Discharge Information Problems reviewed: Yes Clinical Impression/Diagnosis: Cellulitis Qualifiers: Site of cellulitis: trunk Site of cellulitis of trunk: chest wall Qualified Code(s): L03.313 - Cellulitis of chest wall UTI (urinary tract infection) Qualifiers: Urinary tract infection type: acute cystitis Hematuria presence: without hematuria Qualified Code(s): N30.00 - Acute cystitis without hematuria Condition: Stable Disposition: HOME - Admission No - Follow up/Referral Referrals: Jonn Skelton MD [Primary Care Provider] - - Patient Discharge Instructions Additional Instructions: Take Bactrim DS as previously prescribed. Finish all antibiotics even if you feel better. Follow-up with your oil paint shader for continued management of your pain. Return to emergency department for any worsening pain, drainage, hearing loss, or any other concerns. Thank you very much for choosing us to provide your emergent health care needs. - Post Discharge Activity
[2019-02-24 17:57] LABS: BASO % 0.1 % (0-2.0); EOS % 6.1 % (0-4.5); HEMATOCRIT 32.4 % (32.4-45.2); HEMOGLOBIN 10.4 GM/dL (10.7-15.3); LYMPH % 5.7 % (8-40); MCH 26.4 pg (25.7-33.7); MCHC 32.1 g/dl (32.0-36.0); MEAN CELL VOLUME 82.2 fl (80-96); MEAN PLT VOLUME 7.6 fl (7.5-11.1); MONO % 6.7 % (3.8-10.2); NEUT % 81.4 % (42.8-82.8); PLATELET COUNT 354 K/MM3 (134-434); RBC 3.94 M/mm3 (3.60-5.2); RDW 16.3 % (11.6-15.6); WHITE BLOOD COUNT 7.5 K/mm3 (4.0-10.0)
[2019-02-24 18:07] LABS: EPI CELLS 4.4 /HPF (0-5/HPF); HYALINE CASTS 0 /lpf (0-8); URINE APPEARANCE CLEAR; URINE BACTERIA 45.9 /hpf (NEGATIVE); URINE BILIRUBIN NEGATIVE (NEGATIVE); URINE COLOR YELLOW; URINE GLUCOSE (UA) NEGATIVE (NEGATIVE); URINE KETONE NEGATIVE (NEGATIVE); URINE LEUK ESTERASE 1+ (NEGATIVE); URINE NITRITE NEGATIVE (NEGATIVE); URINE PROTEIN NEGATIVE (NEGATIVE); URINE RBC 2 /hpf (0-4); URINE WBC 18 /hpf (0-5)
[2019-02-24 18:40] LABS: BILIRUBIN,TOTAL 0.2 mg/dL (0.2-1); BLOOD UREA NITROGEN 13.2 mg/dL (7-18); CALCIUM 8.5 mg/dL (8.5-10.1); CREATININE 0.9 mg/dL (0.55-1.3); POTASSIUM 3.3 mmol/L (3.5-5.1); TOT PROT 6.7 g/dl (6.4-8.2)
[2019-02-24] MEDS ORDERED: ONDANSETRON 4 MG/2 ML VIAL ONE (19:28)
[2019-02-24] MEDS ORDERED: morphine SULFATE 4 MG/ML VIAL ONE (19:28)
[2019-02-24] MEDS ORDERED: KETOROLAC TROMETHAMINE 30 MG/1 ML VIAL IVPUSH ONE (20:37)
[2019-02-24] MEDS ORDERED: KETOROLAC TROMETHAMINE 30 MG/1 ML VIAL ONE (20:54)
--- NOTE | 2019-02-27 10:59 | EKG ---
Test Reason : Blood Pressure : / mmHG Vent. Rate : 087 BPM Atrial Rate : 087 BPM P-R Int : 146 ms QRS Dur : 076 ms QT Int : 366 ms P-R-T Axes : 073 063 051 degrees QTc Int : 440 ms NORMAL SINUS RHYTHM NORMAL ECG WHEN COMPARED WITH ECG OF 02-APR-2016 09:36, T WAVE VARIATION Confirmed by GABRIEL BAEZ MD ([id number]) on 02/27/2019 10:59:01 AM Referred By: Confirmed By:GABRIEL BAEZ MD
== END 2019-02-24 21:04 | disposition home or self-care (01) ==
LOC: JER 15:56
PROC: 3E033NZ Introduction of Analgesics, Hypnotics, Sedatives into Peripheral Vein, Percutaneous Approach (ICD-10-PCS; principal; 2019-02-24)
PROC: 3E033GC Introduction of Other Therapeutic Substance into Peripheral Vein, Percutaneous Approach (ICD-10-PCS; 2019-02-24)
DX: L03.313 Cellulitis of chest wall (principal); L03.312 Cellulitis of back [any part except buttock and flank]; N39.0 Urinary tract infection, site not specified; B02.8 Zoster with other complications; I10 Essential (primary) hypertension; G35 Multiple sclerosis; J45.909 Unspecified asthma, uncomplicated; D64.9 Anemia, unspecified; E03.9 Hypothyroidism, unspecified; F31.9 Bipolar disorder, unspecified; F41.9 Anxiety disorder, unspecified; R73.03 Prediabetes; Z91.018 Allergy to other foods
CPT/HCPCS: 36415; 76705-TC; 80053; 81003; 83690; 85025; 87070; 87086; 87880; 93005; 93010; 99282-25; J7030